=== PATIENT | male | born 1975 | race Caucasian/White ===

== ENCOUNTER 2016-10-03 11:59 | Emergency (ER) | payer OTHER ==
[2016-10-03] MEDS ORDERED: Lidocaine 1% with EPINEPHrine 1:100,000 20 ML MDV INJECT ONE (12:38)
--- NOTE | 2016-10-03 12:39 | CT ---
Head CT Technique: Multiple axial sections through the brain were obtained. Intravenous contrast was not utilized. Comparison: No previous study. Findings: Ventricles along with basal cisterns and sulci over the convexities appear within normal limits for the patient's age. No abnormal parenchymal densities are seen. No evidence of intracranial hemorrhage. No midline shift or mass effect is seen. Bone window settings were reviewed which shows no acute calvarial abnormality. Impression: 1. No acute abnormality is appreciated on noncontrast head CT study. Diagnostic code #1
[2016-10-03] MEDS ORDERED: Diphtheria,Pertussis(Acell),Tetanus Vaccine 0.5 ML SDV inactive IM ONE (12:58)
--- NOTE | 2016-10-03 13:27 | EDM.PDOC ---
ED HPI GENERAL MEDICAL PROBLEM - General Chief Complaint: Laceration Stated Complaint: FOREHEAD LAC Time Seen by Provider: 10/03/16 12:10 Source of Information: Reports: Patient History Limitations: Reports: No Limitations - History of Present Illness INITIAL COMMENTS - FREE TEXT/NARRATIVE: The patient presents with a laceration to his forehead. He was putting in a fence post with a tamper and it kicked back and hit him in the top of the head. He had no LOC. He was knocked back slightly. He has a headache now. His tetanus may be up to date. He would take a tetanus. Onset: Sudden Duration: Hour(s): Location: Reports: Head (6cm laceration to the forehead) Quality: Reports: Sharp Severity: Moderate Improves with: Reports: None Worsens with: Reports: None Associated Symptoms: Reports: No Other Symptoms - Related Data Allergies Allergy/AdvReac Type Severity Reaction Status Date / Time No Known Allergies Allergy Verified 10/03/16 12:07 Home Meds: Home Meds . [No Known Home Meds] 10/03/16 [History] Past Medical History - Past Health History Medical/Surgical History: Denies Medical/Surgical History Social & Family History - Tobacco Use Smoking Status *Q: Never Smoker Second Hand Smoke Exposure: No - Caffeine Use Caffeine Use: Reports: Coffee - Recreational Drug Use Recreational Drug Use: No ED ROS GENERAL - Review of Systems Review Of Systems: See Below Constitutional: Reports: No Symptoms HEENT: Reports: Other (6cm laceration to the forehead) Respiratory: Reports: No Symptoms Cardiovascular: Reports: No Symptoms Endocrine: Reports: No Symptoms GI/Abdominal: Reports: No Symptoms : Reports: No Symptoms Musculoskeletal: Reports: No Symptoms ED EXAM, SKIN/RASH Exam: See Below Exam Limited By: No Limitations General Appearance: Alert, No Apparent Distress Ears: Normal External Exam Nose: Normal Inspection Head: Other (6cm laceration to the upper mid forehead/scalp) Neck: Normal Inspection Respiratory/Chest: No Respiratory Distress Neurological: Alert, Oriented, No Motor/Sensory Deficits ED SKIN PROCEDURES - Laceration/Wound Repair Forehead Lac/Wound length In cm: 6 Appearance: Subcutaneous, Linear Anesthetic Type: Local Local Anesthesia - Lidocaine (Xylocaine): 1% With EPI Exploration/Debridement/Repair: Wound Explored, in a Bloodless Field, Explored to Base Closed with: Sutures Suture Size: 4-0 # of Sutures: 5 Suture Type: Nylon, Interrupted, Simple Suture Size: 3-0 # of Sutures: 1 Repaired with: Vicryl Tetanus Status Addressed: Yes Complications: No Course - Vital Signs Last Recorded V/S: Last Vital Signs Temp 99.2 F 10/03/16 12:08 Pulse 98 10/03/16 12:08 Resp 18 10/03/16 12:08 BP Pulse Ox 98 10/03/16 12:08 - Orders/Labs/Meds Orders: Active Orders 24 hr Category Date Time Status Vaccines to be Administered [RC] PER UNIT ROUTINE Care 10/03/16 12:58 Active Meds: Medications Discontinued Medications Generic Name Dose Route Start Last Admin Trade Name Freq PRN Reason Stop Dose Admin Diphtheria/Tetanus/Acell Pertussis 0.5 ml 10/03/16 12:58 Boostrix IM 10/03/16 12:59 .ONCE ONE Lidocaine/Epinephrine 20 ml 10/03/16 12:38 Xylocaine 1% With Epinephrine 1:100,000 INJECT 10/03/16 12:39 ONETIME ONE - Re-Assessments/Exams Free Text/Narrative Re-Assessment/Exam: 10/03/16 13:[address] looks good. I up dated his tetanus. Departure - Departure Time of Disposition: 13:30 Disposition: Home, Self-Care 01 Condition: good Clinical Impression: Head injury Qualifiers: Encounter type: initial encounter Qualified Code(s): S09.90XA - Unspecified injury of head, initial encounter Laceration of forehead Qualifiers: Encounter type: initial encounter Qualified Code(s): S01.81XA - Laceration without foreign body of other part of head, initial encounter - Discharge Information Referrals: Michelle Kaplan PA-C [Physician Meeting/Event Planner] - 1 Week Forms: ED Department Discharge Additional Instructions: Wash the wound with warm soapy water 2 times per day and apply antibiotic ointment after. Have the sutures removed in 5 to 7 days. Look for any signs of infection such as redness, swelling, pain or drainage. - My Orders Last 24 Hours: My Active Orders 10/03/16 12:58 Vaccines to be Administered [RC] PER UNIT ROUTINE - Assessment/Plan Last 24 Hours: My Active Orders 10/03/16 12:58 Vaccines to be Administered [RC] PER UNIT ROUTINE
== END 2016-10-03 13:43 | disposition home or self-care (01) ==
LOC: JD.ED 11:59
DX: S01.81XA Laceration without foreign body of other part of head, initial encounter (principal); S09.90XA Unspecified injury of head, initial encounter; W22.8XXA Striking against or struck by other objects, initial encounter; Z23 Encounter for immunization
CPT/HCPCS: 12014; 12053; 70450; 70450-26; 90471; 90715; 99283-25; 99284-25